=== PATIENT | female | born 1990 | race Caucasian/White ===

== ENCOUNTER → 2017-05-15 | Emergency (ER) | payer SELFPAY ==
[~2017-05-15] VITALS: Ht 175.3 cm; Wt 59.9 kg
[~2017-05-15] MED LIST: NKM
[2017-05-15 22:00] VITALS: BP 108/67
--- NOTE | 2017-05-15 23:49 | Emergency Room Report ---
History of Present Illness General Chief Complaint: Upper Extremity Injury Source: Patient Present Illness HPI Is a 26-year-old female who presents with chief complaint of right elbow pain status post fall. She was in the we will been called multiple times without answer. She left after triage. I did not see the patient. Allergies: Coded Allergies: No Known Allergies (Unverified , 05/15/17) Patient History Last Menstrual Period: May Nursing Documentation-[facility] Past Medical History: No Stated History Physical Exam Vital Signs Date Time Temp Pulse Resp B/P (MAP) Pulse Ox O2 Delivery O2 Flow Rate FiO2 05/15/17 22:00 97.3 55 16 108/67 99 Room Air Medical Decision Making Last Vital Signs Date Time Temp Pulse Resp B/P (MAP) Pulse Ox O2 Delivery O2 Flow Rate FiO2 05/15/17 22:00 97.3 55 16 108/67 99 Room Air Disposition: LEFT W/OUT BEING SEEN Referrals: NOT CHOSEN IPA/,REFERRING (PCP) XENA BOWERS M.D. May 15, 2017 23:49
== END | disposition left against medical advice (07) ==
LOC: EMR 22:40
DX: M25.521 Pain in right elbow (principal); Z53.21 Procedure and treatment not carried out due to patient leaving prior to being seen by health care provider
CPT/HCPCS: 99281